=== PATIENT | male | born 1965 | race Caucasian/White ===

== ENCOUNTER 2019-05-05 14:56 | Emergency (ER) | payer SELFPAY ==
--- NOTE | 2019-05-05 17:47 | Event Note ---
ED Screening Note Date of service: 05/05/19 (n) Time: 17:46 ED Screening Note: 53 y o prsents with lft index finger lac with bone involvment tet: 2 yeears ago This initial assessment/diagnostic orders/clinical plan/treatment(s) is/are subject to change based on patients health status, clinical progression and re- assessment by fellow clinical providers in the ED. Further treatment and workup at subsequent clinical providers discretion. Patient/guardian urged not to elope from the ED as their condition may be serious if not clinically assessed and managed. Initial orders include: xr lft index acc eval lac repair
--- NOTE | 2019-05-05 18:20 | XRay Report ---
LEFT HAND 3 VIEW(S) INDICATION / CLINICAL INFORMATION: injury laceration COMPARISON: None available. FINDINGS: BONES / JOINT(S): Acute, minimally displaced articular fracture at the head of the index finger proxi mal phalanx on the radial side. No significant arthritis. SOFT TISSUES: Bandage material overlying the index finger obscures bone and soft tissue detail. There is mild, diffuse swelling of the index finger. Signer Name: Dilan Alejandre MD Signed: 05/05/2019 6:16 PM Workstation Name: [id number]
[2019-05-05 20:19] VITALS: BP 146/98
[2019-05-05] MEDS ORDERED: BUPIVACAINE/PF (0.5%) 5 MG/1 ML 10 ML VIAL INFILTRATI STA (21:01)
[2019-05-05] MEDS ORDERED: TETANUS,DIPH,PERTUSS(ACELL) VACCINE 0.5 ML SYRINGE IM ONE (21:05)
[2019-05-05] MEDS ORDERED: ceFAZolin 1 GM VIAL IM ONE (21:05)
[2019-05-05] MEDS ORDERED: LIDOCAINE (2%) 20 MG/1 ML VIAL 20 ML MDV INFILTRATI ONE ×2 (21:12→21:15)
--- NOTE | 2019-05-05 22:14 | Emergency Department Report ---
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 when he accidentally lacerated the dorsum of this and sit in that finger and diagonal linear fashion resulting and heavy bleeding.) Severity: moderate Symptoms: Yes Pain with Movement, Yes Deformity, No Limited Range of Movement, No Numbness, No Weakness, No Swelling, No Bruising/Ecchymosis ED Review of Systems ROS: Stated complaint: LT HAND INDEX FINGER LAC Other details as noted in HPI Comment: All other systems reviewed and negative ED Past Medical Hx - Past Medical History Previous Medical History?: No - Surgical History Past Surgical History?: No - Social History Smoking Status: Never Smoker - Medications Home Medications: Home Medications Medication Instructions Recorded Confirmed Last Taken Type Acetaminophen/Codeine [Tylenol #3] 1 tab PO Q6H PRN #15 tab 05/05/19 Unknown Rx Chlorhexidine Gluconate [Hibiclens] 10 ml TP BID #240 liquid 05/05/19 Unknown Rx cefUROXime [Ceftin] 250 mg PO Q12H #14 tablet 05/05/19 Unknown Rx Upper Extremity Exam - Exam General: Vital signs noted. No distress. Alert and acting appropriately. Head and Torso: No HEENT Abnormality, No Neck Tenderness, No Chest/Lungs Abnormality, No Abdominal Tenderness, No Back Tenderness Shoulder Exam: Yes Normal Range of Motion in Shoulder, No Shoulder Tenderness, No Clavicle Tenderness, No Shoulder Deformity, No AC Joint Tenderness Arm Exam: No Arm/Humerus Tenderness, No Arm Deformity Elbow: No Elbow Tenderness, No Normal Range of Motion in Elbow, No Elbow Deformity Forearm: No Forearm Tenderness, No Forearm Deformity, No Pain with Pronation, No Pain with Supination Wrist: Yes Normal ROM in Wrist, No Wrist Tenderness, No Wrist Deformity, No Snuffbox Tenderness, No Pain with Axial Thumb Compression Hand: Yes Hand Deformity, Yes Normal ROM in Digit(s), No Hand Tenderness, No Digit Tenderness, No Digit(s) Deformity, No Tendon Dysfunction CMS Exam: Yes Broken Skin, No Normal Distal Pulses, No Normal Capillary Refill, No Normal Distal Sensation Hand L/R Back: 1 - Laceration to this aspect of the finger. Weakness able to visualize bone. The patient does still exhibited full extension and flexion of the digit capillary refills are brisk. ED Course Vital Signs 05/05/19 05/05/19 16:46 20:00 Temperature 98.3 F 98.0 F Pulse Rate 80 72 Respiratory 16 18 Rate Blood Pressure 123/89 Blood Pressure 146/98 [Left] O2 Sat by Pulse 100 100 Oximetry - Laceration /Wound Repair Left Finger Wound Location: upper extremity Wound Length (cm): 7 Wound's Depth, Shape: linear Irrigated w/ Saline (ccs): 50 Betadine Prep?: Yes Anesthesia: 1% Lidocaine Volume Anesthetic (ccs): 3 Wound Debrided: minimal Wound Repaired With: sutures Suture Size/Type: 4:0 Number of Sutures: 12 Sterile Dressing Applied?: Yes Critical care attestation.: If time is entered above; I have spent that time in minutes in the direct care of this critically ill patient, excluding procedure time. ED Disposition Clinical Impression: Laceration of finger of left hand with complication, Proximal phalanx fracture of finger Disposition: [id number] TO HOME OR SELFCARE Is pt being admited?: No Does the pt Need Aspirin: No Condition: Stable Instructions: Suture Care (ED), Laceration (ED), Finger Laceration (ED), Finger Fracture (ED) Additional Instructions: Please be sure to have the wound checked in 2-3 days with orthopedic provider. Sutures will not need to be removed for the next 10-14 days. Return to emergency department should you develop any signs of insect infection including swelling, redness, yellow or green discharge from the wound, significant worsening in pain. A few unsure what to do urinalysis call the emergency d epartment for guidance Referrals: LYNDA HERNANDEZ MD [Staff Physician] - 2-3 Days (wound check )
== END 2019-05-05 23:10 | disposition home or self-care (01) ==
LOC: ED 14:56
DX: S61.211A Laceration without foreign body of left index finger without damage to nail, initial encounter (principal); S62.611A Displaced fracture of proximal phalanx of left index finger, initial encounter for closed fracture; W26.0XXA Contact with knife, initial encounter; Y93.89 Activity, other specified; Y92.89 Other specified places as the place of occurrence of the external cause; Y99.8 Other external cause status
CPT/HCPCS: 12002; 73130; 90471; 90715; 96372; 99283; J0690